=== PATIENT | male | born 1955 | race Asian ===

== ENCOUNTER 2016-11-30 13:22 | Day surgery (SDC) | payer OTHER ==
[~2016-11-30] VITALS: Ht 172.7 cm; Wt 80.1 kg
[2016-11-30] MEDS ORDERED: ATORVASTATIN (13:46)
[2016-11-30] MEDS ORDERED: AMLODIPINE (13:46)
[2016-11-30] MEDS ORDERED: [UNRECOGNIZED DRUG - REMARK] (13:46)
[2016-11-30 13:53] VITALS: Ht 172.7 cm; Wt 80.1 kg
[2016-11-30 14:39] VITALS: BP 149/65; PULSE 61; RESP 16
[2016-11-30] MEDS ORDERED: FENTAnyl 50 MCG/ML VIAL ONE (14:56)
[2016-11-30 15:23] VITALS: BP 114/62; RESP 20
[2016-11-30] MEDS ORDERED: MIDAZOLAM 1 MG/ML 2 ML INJ ONE (15:51)
--- NOTE | 2016-12-02 08:49 | GILP ---
DATE OF PROCEDURE: 11/30/2016 PREOPERATIVE DIAGNOSIS: Screening colonoscopy. POSTOPERATIVE DIAGNOSES: 1. Diverticulosis, more on the right side than the left. 2. Internal hemorrhoids. PROCEDURE PERFORMED: Colonoscopy. DESCRIPTION OF PROCEDURE: The patient was put in the left lateral decubitus after obtaining informed consent. He was sedated, monitored on oximetry, EKG, and blood pressure. Advanced the Olympus video colonoscope after sedation all the way to cecum. Appendiceal opening, ileocecal valve identified. Multiple diverticula noted in the cecum and ascending colon, more so than the left side. Transverse colon had a few diverticula. Left colon, descending and sigmoid had a few scattered diverticula noted. Rectum including retroflexion showed internal hemorrhoids, grade 2, otherwise unremarkable. Upon removal of scope, patient had no complications. PLAN: Follow the patient as an outpatient. Advised him to go on a high-fiber diet. Repeat colonoscopy probably in five to 10 years. Dictated By: Vanessa Dsouza MD /sharif/jamison /Document#: [id number] ; DR. MINOO PORRAS
== END 2016-11-30 18:00 | disposition home or self-care (01) ==
LOC: GIL 13:22
PROVIDERS: ATTEND Internal Medicine
DX: Z12.11 Encounter for screening for malignant neoplasm of colon (principal); K57.90 Diverticulosis of intestine, part unspecified, without perforation or abscess without bleeding; K64.8 Other hemorrhoids
CPT/HCPCS: 45378; J2250; J3010